=== PATIENT | female | born 1945 | race Two or more races ===

== ENCOUNTER 2023-12-11 16:31 | Emergency (ER) | payer OTHER ==
[~2023-12-11] VITALS: Ht 165.1 cm; Wt 60.0 kg
[2023-12-11 16:58] VITALS: BP 160/80; PULSE 83; RESP 15; O2SAT 98
== END 2023-12-11 18:26 | disposition left against medical advice (07) ==
LOC: ER 16:31
DX: Z48.00 Encounter for change or removal of nonsurgical wound dressing (principal); Z53.21 Procedure and treatment not carried out due to patient leaving prior to being seen by health care provider

== ENCOUNTER 2023-12-13 09:22 | Emergency (ER) | payer OTHER ==
[~2023-12-13] VITALS: Ht 165.1 cm; Wt 64.6 kg
[2023-12-13 09:44] VITALS: BP 137/56; RESP 18; O2SAT 97
[2023-12-13 09:50] VITALS: PULSE 79
[2023-12-13 11:16] LABS: Alanine Aminotransferase 27 U/L (7-40); Albumin 3.8 g/dL (3.2-4.8); Alkaline Phosphatase 99 U/L (46-116); Anion Gap 10 (5-15); Aspartate Aminotransferase 34 U/L (13-40); BUN/Creatinine Ratio 8.4 (10.0-20.0); Blood Alcohol < 3.0 mg/dL (<10); Blood Urea Nitrogen 44 mg/dL (9-23); Carbon Dioxide 30 mmol/L (20-30); Chloride 95 mmol/L (98-107); Glucose 105 mg/dL (74-106); Potassium 4.6 mmol/L (3.5-5.1); Sodium 135 mmol/L (136-145)
[2023-12-13 11:17] LABS: Bilirubin, Total < 0.2 mg/dL (0.2-1.0); Total Protein 6.2 g/dL (5.7-8.2)
[2023-12-13] MEDS ORDERED: ACET500T58 PO (13:00)
[2023-12-13] MEDS ORDERED: CLIN1CAP70 PO (13:00)
[2023-12-13] MEDS: BACITRACIN TOP OINT 1 UD PKG TOP ONE (13:26)
== END 2023-12-13 13:53 | disposition home or self-care (01) ==
LOC: ER 09:22
DX: S61.411A Laceration without foreign body of right hand, initial encounter (principal); Z88.0 Allergy status to penicillin; X58.XXXA Exposure to other specified factors, initial encounter; Y93.89 Activity, other specified; Y92.89 Other specified places as the place of occurrence of the external cause; Y99.8 Other external cause status
CPT/HCPCS: 36415; 70450; 71045; 73090; 73130; 80053; 80320; 83605; 83880; 84484; 85379; 87040; 93005; 93970

== ENCOUNTER 2023-12-31 16:03 | Inpatient (IN) | payer OTHER ==
[~2023-12-31] VITALS: Ht 167.6 cm; Wt 66.8 kg
[~2023-12-31 16:03] MED LIST: ACET500T58 PO; CLIN1CAP70 PO
[2023-12-31 16:26] VITALS: PULSE 69; RESP 16; O2SAT 100
[2023-12-31] MEDS: methylPREDNISolone SOD SUCC 125 MG/2 ML VL IV ONE (16:38)
[2023-12-31 16:55] LABS: Basophils # (auto) 0.1 10 ^3/uL (0-0.2); Basophils % (auto) 0.6 % (0.0-2.0); Eosinophils # (auto) 0.1 10 ^3/uL (0-0.8); Eosinophils % (auto) 0.8 % (0.0-7.0); Hematocrit 28.5 % (36.0-46.0); Hemoglobin 9.2 g/dL (12.2-16.2); Lymphocytes # (auto) 2.5 10 ^3/uL (0.4-5.4); Lymphocytes % (auto) 25.5 % (10.0-50.0); Mean Corpuscular Hemoglobin 30.9 pg (28.0-32.0); Mean Corpuscular Hgb Conc. 32.4 g/dL (32.0-36.0); Mean Corpuscular Volume 95.2 fL (80.0-100.0); Monocytes % (auto) 9.7 % (0.0-12.0); Neutrophils # (auto) 6.3 10 ^3/uL (1.6-8.6); Neutrophils % (auto) 63.4 % (37.0-80.0); Red Blood Cells 2.99 10^6/uL (4.0-5.20); Red Cell Distribution Width 18.2 % (11.8-14.3); White Blood Cell 9.9 10^3/uL (4.4-10.8)
[2023-12-31 18:24] LABS: Rapid Influenza A Negative (Negative); Rapid Influenza B Negative (Negative)
[2023-12-31 18:25] LABS: COVID19 ANTIGEN SOFIA FIA NEGATIVE (NEGATIVE)
[2023-12-31] MEDS: FUROSEMIDE 40 MG/4 ML VIAL IV ONE (19:45)
[2023-12-31 20:16] VITALS: PULSE 73; RESP 12; O2SAT 100
[2023-12-31] MEDS: APIXABAN 5 MG TAB PO SCH (21:52)
[2023-12-31] MEDS: levETIRAcetam 500 MG TAB PO SCH (21:52)
[2023-12-31] MEDS: CARVEDILOL 12.5 MG TAB PO SCH (21:53)
[2023-12-31 22:14] LABS: Chloride 95 mmol/L (98-107); Potassium 4.4 mmol/L (3.5-5.1); Sodium 135 mmol/L (136-145)
[2023-12-31 22:15] LABS: Anion Gap 9 (5-15); Carbon Dioxide 31 mmol/L (20-30)
[2023-12-31 22:20] LABS: BUN/Creatinine Ratio 5.2 (10.0-20.0); Blood Urea Nitrogen 26 mg/dL (9-23); Glucose 102 mg/dL (74-106)
[2023-12-31 23:30] VITALS: BP 112/80; PULSE 73; RESP 17; TEMP 98
[2023-12-31 23:52] VITALS: BP 112/80; PULSE 73; RESP 17; TEMP 98; O2SAT 99
[2024-01-01] VITALS (13 sets, daily range): BP systolic 112–153; BP diastolic 53–81; PULSE 66–76; RESP 16–18; TEMP 97.9–98.6; O2SAT 98–100
[2024-01-01 07:01] LABS: Basophils # (auto) 0 10 ^3/uL (0-0.2); Basophils % (auto) 0.1 % (0.0-2.0); Eosinophils # (auto) 0 10 ^3/uL (0-0.8); Eosinophils % (auto) 0.1 % (0.0-7.0); Hematocrit 30.1 % (36.0-46.0); Hemoglobin 9.8 g/dL (12.2-16.2); Lymphocytes # (auto) 1.8 10 ^3/uL (0.4-5.4); Mean Corpuscular Hemoglobin 31.7 pg (28.0-32.0); Mean Corpuscular Hgb Conc. 32.7 g/dL (32.0-36.0); Mean Corpuscular Volume 96.8 fL (80.0-100.0); Monocytes # (auto) 0.4 10 ^3/uL (0-1.3); Monocytes % (auto) 4.9 % (0.0-12.0); Neutrophils # (auto) 5.2 10 ^3/uL (1.6-8.6); Neutrophils % (auto) 70.9 % (37.0-80.0); Nucleated Red Blood Cells % 0.1 %; Red Blood Cells 3.11 10^6/uL (4.0-5.20); Red Cell Distribution Width 18.1 % (11.8-14.3); White Blood Cell 7.4 10^3/uL (4.4-10.8)
[2024-01-01 07:18] LABS: Alanine Aminotransferase 26 U/L (7-40); Albumin 4.2 g/dL (3.2-4.8); Alkaline Phosphatase 107 U/L (46-116); Anion Gap 9 (5-15); Aspartate Aminotransferase 18 U/L (13-40); BUN/Creatinine Ratio 4.4 (10.0-20.0); Blood Urea Nitrogen 27 mg/dL (9-23); Calcium 10.3 mg/dL (8.7-10.4); Carbon Dioxide 28 mmol/L (20-30); Chloride 95 mmol/L (98-107); Glucose 102 mg/dL (74-106); Potassium 4.4 mmol/L (3.5-5.1); Sodium 132 mmol/L (136-145)
[2024-01-01 07:19] LABS: Bilirubin, Total < 0.2 mg/dL (0.2-1.0)
[2024-01-01] MEDS: SEVELAMER 800 MG TAB PO SCH (08:06)
[2024-01-01] MEDS: FUROSEMIDE 40 MG TAB PO SCH (09:32)
[2024-01-01] MEDS: CLOPIDOGREL BISULFATE 75 MG TAB PO SCH (09:32)
[2024-01-01] MEDS: guaiFENesin-DM 100/10mg/5ml SYR PO PRN (13:29)
[2024-01-01] MEDS: ONDANSETRON HCL 4 MG/2 ML VIAL IV PRN (15:42)
[2024-01-01] MEDS: PANTOPRAZOLE 40 MG TAB PO SCH (17:58)
[2024-01-01] MEDS: BUMETANIDE 2.5mg/10ml (0.25 mg/ml) INJ IV SCH (17:59)
[2024-01-01] MEDS: ALBUTEROL SULF 2.5 MG/0.5ML(0.5%) NEB SOLN NEB PRN (18:39)
[2024-01-01] MEDS: hydrALAZINE HCL 20 MG/ML VL IV ONE (22:46)
[2024-01-02] VITALS (15 sets, daily range): BP systolic 139–184; BP diastolic 45–72; PULSE 60–71; RESP 16–18; TEMP 97.6–98.6; O2SAT 94–100
[2024-01-02] MEDS ORDERED: SODIUM CHL 0.9% 1000 ML BAG XX ONE (07:00)
[2024-01-02] MEDS ORDERED: hydrALAZINE HCL 20 MG/ML VL IV PRN (15:15)
[2024-01-02] MEDS ORDERED: CARV12.544 PO (15:32)
[2024-01-02] MEDS ORDERED: CILO100T3 PO (15:32)
[2024-01-02] MEDS ORDERED: SEVE800T8 PO (15:32)
[2024-01-02] MEDS ORDERED: FAMO-12 PO (15:32)
[2024-01-02] MEDS ORDERED: AMLO1TAB22 PO (15:32)
[2024-01-02] MEDS ORDERED: LISI20TA56 PO (15:32)
[2024-01-02] MEDS ORDERED: HYDR25TA88 PO (15:32)
[2024-01-02] MEDS ORDERED: PREG50CA PO (15:32)
[2024-01-02] MEDS ORDERED: ISOS1TAB29 PO (15:32)
[2024-01-02] MEDS ORDERED: ROSU10TA64 PO (15:32)
[2024-01-02] MEDS: methylPREDNISolone SOD SUCC 125 MG/2 ML VL IV ONE (16:21)
[2024-01-02] MEDS: ALBUTEROL SULF 2.5 MG/0.5ML(0.5%) NEB SOLN NEB SCH (19:11)
[2024-01-02] MEDS ORDERED: PATIENTS OWN MEDICATION (Sevelamer Carbonate (Renvela) 2 TAB) PO SCH (22:00)
[2024-01-02] MEDS: EPOETIN ALFA-EPBX 4,000 UNIT/ML VIAL SC ONE (22:20)
[2024-01-02] MEDS: PREGABALIN 25 MG CAP PO SCH (22:21)
[2024-01-02] MEDS: methylPREDNISolone SOD SUCC 125 MG/2 ML VL IV SCH (22:21)
[2024-01-02] MEDS: hydrALAZINE HCL 25 MG TAB PO SCH (22:22)
[2024-01-02] MEDS: CARVEDILOL 12.5 MG TAB PO SCH (22:22)
[2024-01-02] MEDS: CILOSTAZOL 100 MG TAB PO SCH (22:23)
[2024-01-02] MEDS: LISINOPRIL 20 MG TAB PO SCH (22:23)
[2024-01-02] MEDS: FAMOTIDINE 20 MG TAB PO SCH (22:23)
[2024-01-03] VITALS (21 sets, daily range): BP systolic 103–141; BP diastolic 39–63; PULSE 67–78; RESP 16–20; TEMP 97.5–98.8; O2SAT 94–100
[2024-01-03] MEDS: ALBUTEROL SULF 2.5 MG/0.5ML(0.5%) NEB SOLN NEB SCH (02:04)
[2024-01-03] MEDS ORDERED: guaiFENesin-DM 100/10mg/5ml SYR PO PRN (10:15)
[2024-01-03] MEDS: ISOSORBIDE MONONITRATE ER 60 MG TAB PO SCH (10:20)
[2024-01-03] MEDS: ASPirin 81 mg TAB PO SCH (10:22)
[2024-01-03] MEDS: amLODIPine BESYLATE 5 MG TAB PO SCH (10:22)
[2024-01-03 14:03] LABS: Basophils # (auto) 0 10 ^3/uL (0-0.2); Basophils % (auto) 0.2 % (0.0-2.0); Eosinophils # (auto) 0 10 ^3/uL (0-0.8); Hematocrit 33.3 % (36.0-46.0); Hemoglobin 10.7 g/dL (12.2-16.2); Lymphocytes # (auto) 1.6 10 ^3/uL (0.4-5.4); Lymphocytes % (auto) 16.4 % (10.0-50.0); Mean Corpuscular Hemoglobin 31.4 pg (28.0-32.0); Mean Corpuscular Hgb Conc. 32.1 g/dL (32.0-36.0); Mean Corpuscular Volume 97.9 fL (80.0-100.0); Monocytes # (auto) 0.3 10 ^3/uL (0-1.3); Monocytes % (auto) 3.4 % (0.0-12.0); Neutrophils # (auto) 7.9 10 ^3/uL (1.6-8.6); Red Cell Distribution Width 18.5 % (11.8-14.3); White Blood Cell 9.9 10^3/uL (4.4-10.8)
[2024-01-03 14:21] LABS: Alanine Aminotransferase 28 U/L (7-40); Alkaline Phosphatase 106 U/L (46-116); Anion Gap 11 (5-15); Aspartate Aminotransferase 18 U/L (13-40); BUN/Creatinine Ratio 5.3 (10.0-20.0); Blood Urea Nitrogen 36 mg/dL (9-23); Calcium 9.9 mg/dL (8.7-10.4); Carbon Dioxide 26 mmol/L (20-30); Chloride 97 mmol/L (98-107); Glucose 97 mg/dL (74-106); Magnesium 2.5 mg/dL (1.6-2.6); Potassium 4.3 mmol/L (3.5-5.1); Sodium 134 mmol/L (136-145)
[2024-01-03 14:22] LABS: Albumin 4.1 g/dL (3.2-4.8)
[2024-01-03 14:23] LABS: Bilirubin, Total < 0.2 mg/dL (0.2-1.0); Total Protein 6.8 g/dL (5.7-8.2)
[2024-01-04] VITALS (12 sets, daily range): BP systolic 94–124; BP diastolic 48–60; PULSE 62–77; RESP 14–18; TEMP 97.4–98.1; O2SAT 95–99
[2024-01-04] MEDS: ACETAMINOPHEN 325 MG TAB PO PRN (09:06)
[2024-01-04 09:47] LABS: Hepatitis B Surface Antibody Negative (Negative)
[2024-01-04 09:59] LABS: Hepatitis B Surface Antigen Negative (Negative)
[2024-01-04] MEDS ORDERED: AZITTAB PO (12:52)
[2024-01-04] MEDS ORDERED: METH4PAK PO (12:52)
[2024-01-04] MEDS ORDERED: SODIUM CHL 0.9% 1000 ML BAG XX ONE (15:30)
== END 2024-01-04 20:00 | disposition home or self-care (01) | DRG 189 ==
LOC: EDBD 16:03 → ER 16:05 → OVERFLOW 21:37 → WEST WING 23:22
PROVIDERS: ADMIT Nurse Practitioner; ATTEND Internal Medicine Geriatric Medicine
PROC: 5A1D70Z Performance of Urinary Filtration, Intermittent, Less than 6 Hours Per Day (ICD-10-PCS; principal; 2024-01-02)
PROC: 5A1D70Z Performance of Urinary Filtration, Intermittent, Less than 6 Hours Per Day (ICD-10-PCS; 2024-01-04)
DX: J96.21 Acute and chronic respiratory failure with hypoxia (principal); N18.6 End stage renal disease; J44.1 Chronic obstructive pulmonary disease with (acute) exacerbation; I13.2 Hypertensive heart and chronic kidney disease with heart failure and with stage 5 chronic kidney disease, or end stage renal disease; I50.32 Chronic diastolic (congestive) heart failure; G40.909 Epilepsy, unspecified, not intractable, without status epilepticus; D63.1 Anemia in chronic kidney disease; Z20.822 Contact with and (suspected) exposure to COVID-19; E78.5 Hyperlipidemia, unspecified; K59.00 Constipation, unspecified; Z82.3 Family history of stroke; Z82.49 Family history of ischemic heart disease and other diseases of the circulatory system; Z83.3 Family history of diabetes mellitus; Z86.73 Personal history of transient ischemic attack (TIA), and cerebral infarction without residual deficits; Z87.891 Personal history of nicotine dependence; Z99.2 Dependence on renal dialysis; Z99.81 Dependence on supplemental oxygen; Z79.01 Long term (current) use of anticoagulants; Z88.0 Allergy status to penicillin; Z90.710 Acquired absence of both cervix and uterus
CPT/HCPCS: 36415; 71045; 80048; 80053; 83605; 83735; 83880; 84484; 85025; 86706; 87040; 87081; 87340; 87426; 87804; 90935; 93005; 93306; 94640; 96374; 99291; G0378; J1642; J2405

== ENCOUNTER 2024-01-09 23:57 | Inpatient (IN) | payer OTHER ==
[~2024-01-09] VITALS: Ht 165.1 cm; Wt 62.1 kg
[~2024-01-09 23:57] MED LIST changes: -ACET500T58 PO; +AMLO1TAB22 PO; +AZITTAB PO; +CARV12.544 PO; +CILO100T3 PO; -CLIN1CAP70 PO; +FAMO-12 PO; +HYDR25TA88 PO; +ISOS1TAB29 PO; +LISI20TA56 PO; +METH4PAK PO; +PREG50CA PO; +ROSU10TA64 PO; +SEVE800T8 PO
[2024-01-10] VITALS (8 sets, daily range): BP systolic 151–153; BP diastolic 57–67; PULSE 69–79; RESP 18–20; TEMP 97.8; O2SAT 95–100
[2024-01-10] MEDS: FUROSEMIDE 40 MG/4 ML VIAL ONE (02:02)
[2024-01-10] MEDS: methylPREDNISolone SOD SUCC 125 MG/2 ML VL ONE (02:02)
[2024-01-10] MEDS: IPRATROPIUM BROM 0.5 MG/2.5ML INH SOL NEB ONE (02:14)
[2024-01-10] MEDS: FUROSEMIDE 40 MG/4 ML VIAL IV ONE (02:15)
[2024-01-10] MEDS: methylPREDNISolone SOD SUCC 125 MG/2 ML VL IV ONE (02:15)
[2024-01-10] MEDS: NITROGLYCERIN 0.4MG/HR TOPICAL PATCH TD ONE (02:30)
[2024-01-10] MEDS: ALBUTEROL SULF 2.5 MG/0.5ML(0.5%) NEB SOLN NEB ONE (02:30)
[2024-01-10] MEDS: ONDANSETRON HCL 4 MG/2 ML VIAL IV ONE (02:30)
[2024-01-10] MEDS: FUROSEMIDE 20 MG/2 ML VIAL IV ONE (02:30)
[2024-01-10] MEDS: ASPirin 81 mg TAB PO ONE (02:30)
[2024-01-10] MEDS: ALBUTEROL SULF 2.5 MG/0.5ML(0.5%) NEB SOLN HHN ONE (02:30)
[2024-01-10] MEDS: IPRATROPIUM BROM 0.5 MG/2.5ML INH SOL HHN ONE (02:31)
[2024-01-10 03:01] LABS: Base Excess 11.5 mmol/L (-2.0-2.0)
[2024-01-10 03:34] LABS: Anion Gap 10 (5-15); BUN/Creatinine Ratio 6.3 (10.0-20.0); Blood Urea Nitrogen 22 mg/dL (9-23); Calcium 9.1 mg/dL (8.7-10.4); Carbon Dioxide 31 mmol/L (20-30); Chloride 97 mmol/L (98-107); Glucose 90 mg/dL (74-106); Potassium 3.9 mmol/L (3.5-5.1); Sodium 138 mmol/L (136-145)
[2024-01-10 03:36] LABS: Basophils # (auto) 0 10 ^3/uL (0-0.2); Basophils % (auto) 0.3 % (0.0-2.0); Eosinophils # (auto) 0 10 ^3/uL (0-0.8); Eosinophils % (auto) 0.4 % (0.0-7.0); Hematocrit 29.5 % (36.0-46.0); Hemoglobin 9.5 g/dL (12.2-16.2); Lymphocytes # (auto) 2.2 10 ^3/uL (0.4-5.4); Lymphocytes % (auto) 26.2 % (10.0-50.0); Mean Corpuscular Hemoglobin 30.6 pg (28.0-32.0); Mean Corpuscular Hgb Conc. 32.2 g/dL (32.0-36.0); Mean Corpuscular Volume 94.9 fL (80.0-100.0); Monocytes % (auto) 11.9 % (0.0-12.0); Neutrophils # (auto) 5.2 10 ^3/uL (1.6-8.6); Neutrophils % (auto) 61.2 % (37.0-80.0); Nucleated Red Blood Cells % 0.1 %; Red Blood Cells 3.11 10^6/uL (4.0-5.20); Red Cell Distribution Width 17.7 % (11.8-14.3); White Blood Cell 8.5 10^3/uL (4.4-10.8)
[2024-01-10 03:38] LABS: INR 0.97 (0.9-1.15); Partial Thromboplastin Time 22.2 SEC (24.5-34.5); Prothrombin Time 10.3 sec (9.3-11.8)
[2024-01-10] MEDS ORDERED: ALBUTEROL SULF 2.5 MG/0.5ML(0.5%) NEB SOLN NEB PRN (05:30)
[2024-01-10] MEDS ORDERED: IPRATROPIUM BROM 0.5 MG/2.5ML INH SOL NEB PRN (05:30)
[2024-01-10] MEDS ORDERED: ACETAMINOPHEN 325 MG TAB PO PRN (05:30)
[2024-01-10] MEDS ORDERED: NITROGLYCERIN 0.4 MG SL TAB SL PRN (05:30)
[2024-01-10] MEDS ORDERED: MORPHINE SULFATE INJ 2 MG/ml SYRG IV PRN (05:30)
[2024-01-10] MEDS: cloNIDine HCL 0.1 MG TAB PO SCH (06:00)
[2024-01-10] MEDS: BUMETANIDE 2.5mg/10ml (0.25 mg/ml) INJ IV SCH (06:00)
[2024-01-10] MEDS: ONDANSETRON HCL 4 MG/2 ML VIAL IV PRN (06:47)
[2024-01-10] MEDS: MORPHINE SULFATE 4 MG/ML SYR/VIAL IV PRN (06:47)
[2024-01-10] MEDS: SEVELAMER 800 MG TAB PO SCH (08:27)
[2024-01-10] MEDS: CARVEDILOL 3.125 MG TAB PO SCH (10:06)
[2024-01-10] MEDS: levETIRAcetam 500 MG TAB PO SCH (10:08)
[2024-01-10] MEDS: amLODIPine BESYLATE 5 MG TAB PO SCH (10:09)
[2024-01-10] MEDS: CLOPIDOGREL BISULFATE 75 MG TAB PO SCH (10:10)
[2024-01-10] MEDS: LISINOPRIL 20 MG TAB PO SCH (10:10)
[2024-01-10] MEDS: APIXABAN 5 MG TAB PO SCH (10:11)
[2024-01-10] MEDS: AZITHROMYCIN 500MG/ 250ML 250 ML IV SCH (10:12)
[2024-01-10 11:12] LABS: % Iron Saturation 20.9 % (15-50)
[2024-01-10 11:17] LABS: Alanine Aminotransferase 42 U/L (7-40); Alkaline Phosphatase 97 U/L (46-116); Anion Gap 5 (5-15); Aspartate Aminotransferase 26 U/L (13-40); BUN/Creatinine Ratio 6.7 (10.0-20.0); Bilirubin, Total < 0.2 mg/dL (0.2-1.0); Blood Urea Nitrogen 28 mg/dL (9-23); CRP High Sensitivity 0.25 mg/dL (<1.0); Calcium 9.4 mg/dL (8.5-10.1); Carbon Dioxide 33 mmol/L (20-30); Chloride 96 mmol/L (98-107); Cholesterol 139 mg/dL (< 200); Glucose 185 mg/dL (74-106); HDL Cholesterol 54 mg/dL (40-59); LDL Cholesterol 55 mg/dL (< 100); Magnesium 2.1 mg/dL (1.6-2.6); Potassium 4.7 mmol/L (3.5-5.1); Sodium 134 mmol/L (136-145); Total Protein 6.7 g/dL (5.7-8.2); Triglycerides 119 mg/dL (< 150)
[2024-01-10] MEDS: methylPREDNISolone SOD SUCC 40 MG/ML VL IV ONE (12:02)
[2024-01-10] MEDS: IPRATROPIUM BROM 0.5 MG/2.5ML INH SOL NEB SCH (12:03)
[2024-01-10] MEDS: ALBUTEROL SULF 2.5 MG/0.5ML(0.5%) NEB SOLN NEB SCH (12:03)
[2024-01-10 15:10] LABS: Basophils # (auto) 0 10 ^3/uL (0-0.2); Basophils % (auto) 0.2 % (0.0-2.0); Eosinophils # (auto) 0 10 ^3/uL (0-0.8); Hematocrit 33.9 % (36.0-46.0); Hemoglobin 10.7 g/dL (12.2-16.2); Lymphocytes % (auto) 23.5 % (10.0-50.0); Mean Corpuscular Hemoglobin 30.5 pg (28.0-32.0); Mean Corpuscular Hgb Conc. 31.6 g/dL (32.0-36.0); Mean Corpuscular Volume 96.4 fL (80.0-100.0); Monocytes # (auto) 0.2 10 ^3/uL (0-1.3); Monocytes % (auto) 2.9 % (0.0-12.0); Neutrophils # (auto) 6.4 10 ^3/uL (1.6-8.6); Neutrophils % (auto) 73.4 % (37.0-80.0); Nucleated Red Blood Cells % 0.1 %; Red Blood Cells 3.52 10^6/uL (4.0-5.20); Red Cell Distribution Width 17.6 % (11.8-14.3); White Blood Cell 8.7 10^3/uL (4.4-10.8)
[2024-01-10] MEDS ORDERED: CLOP75TA70 PO (21:45)
[2024-01-10] MEDS ORDERED: LEVE500T40 PO (21:45)
[2024-01-10] MEDS ORDERED: CARV12.544 PO (21:45)
[2024-01-10] MEDS ORDERED: NITR0.4S29 SL (21:45)
[2024-01-10] MEDS ORDERED: ACET-1881 PO (21:45)
[2024-01-10] MEDS ORDERED: OMEP20TA PO (21:45)
[2024-01-10] MEDS ORDERED: MULTTAB OR (21:45)
[2024-01-10] MEDS ORDERED: HYDR-4902 PO (21:45)
[2024-01-10] MEDS ORDERED: TOPI100T68 PO (21:45)
[2024-01-10] MEDS ORDERED: OLME20TA53 PO (21:45)
[2024-01-10] MEDS: ATORVASTATIN 20 MG TAB PO SCH (21:57)
[2024-01-10] MEDS: methylPREDNISolone SOD SUCC 40 MG/ML VL IV SCH (22:10)
[2024-01-11] VITALS (15 sets, daily range): BP systolic 127–164; BP diastolic 63–72; PULSE 61–75; RESP 14–21; TEMP 97.5–98.5; O2SAT 97–100
[2024-01-11] MEDS: ACETAMINOPHEN 325 MG TAB PO PRN (06:37)
[2024-01-11] MEDS: hydrALAZINE HCL 20 MG/ML VL IV PRN (12:36)
[2024-01-11 14:52] LABS: Urine Bacteria None Seen /hpf (None Seen)
[2024-01-11 15:18] LABS: Urine Blood Negative /uL (Negative); Urine Clarity Clear (Clear); Urine Color Light-Yellow (Yellow); Urine Protein, UAD 3+ (Negative); Urine Specific Gravity 1.009 (1.001-1.035); Urine Urobilinogen Normal (Negative); Urine WBC 44 /hpf (0 - 5)
[2024-01-11] MEDS ORDERED: OLME40TA76 PO (15:18)
[2024-01-11] MEDS: SODIUM CHL 0.9% 1000 ML BAG XX ONE (17:49)
[2024-01-11 18:15] LABS: Basophils # (auto) 0 10 ^3/uL (0-0.2); Basophils % (auto) 0.1 % (0.0-2.0); Eosinophils # (auto) 0 10 ^3/uL (0-0.8); Hematocrit 31.6 % (36.0-46.0); Hemoglobin 10.1 g/dL (12.2-16.2); Lymphocytes # (auto) 2.3 10 ^3/uL (0.4-5.4); Lymphocytes % (auto) 25.6 % (10.0-50.0); Mean Corpuscular Hemoglobin 30.4 pg (28.0-32.0); Mean Corpuscular Hgb Conc. 31.8 g/dL (32.0-36.0); Mean Corpuscular Volume 95.7 fL (80.0-100.0); Monocytes # (auto) 0.4 10 ^3/uL (0-1.3); Neutrophils # (auto) 6.3 10 ^3/uL (1.6-8.6); Neutrophils % (auto) 70.3 % (37.0-80.0); Red Blood Cells 3.31 10^6/uL (4.0-5.20); Red Cell Distribution Width 17.8 % (11.8-14.3)
[2024-01-11 18:36] LABS: Alanine Aminotransferase 26 U/L (7-40); Albumin 3.6 g/dL (3.2-4.8); Alkaline Phosphatase 82 U/L (46-116); Anion Gap 9 (5-15); Aspartate Aminotransferase < 8 U/L (13-40); BUN/Creatinine Ratio 10.1 (10.0-20.0); Calcium 8.5 mg/dL (8.5-10.1); Carbon Dioxide 30 mmol/L (20-30); Chloride 91 mmol/L (98-107); Glucose 187 mg/dL (74-106); Magnesium 2.2 mg/dL (1.6-2.6); Potassium 4.9 mmol/L (3.5-5.1); Sodium 130 mmol/L (136-145)
[2024-01-11 18:37] LABS: Bilirubin, Total < 0.2 mg/dL (0.2-1.0)
[2024-01-11 18:39] LABS: Blood Urea Nitrogen 65 mg/dL (9-23)
[2024-01-11] MEDS: EPOETIN ALFA-EPBX 10,000 UNIT/1ML VIAL SC ONE (22:18)
[2024-01-11] MEDS: CIPROFLOXACIN HYDROCHLORIDE 250 MG TAB PO SCH (22:23)
[2024-01-12] VITALS (7 sets, daily range): BP systolic 142–151; BP diastolic 51–70; PULSE 56–69; RESP 16–20; TEMP 98–98.5; O2SAT 95–100
[2024-01-12 05:10] LABS: COVID19 ANTIGEN SOFIA FIA NEGATIVE (NEGATIVE)
[2024-01-12 06:05] LABS: Basophils # (auto) 0 10 ^3/uL (0-0.2); Basophils % (auto) 0.1 % (0.0-2.0); Eosinophils # (auto) 0 10 ^3/uL (0-0.8); Eosinophils % (auto) 0.2 % (0.0-7.0); Lymphocytes # (auto) 3.6 10 ^3/uL (0.4-5.4); Lymphocytes % (auto) 38.2 % (10.0-50.0); Mean Corpuscular Hemoglobin 31.2 pg (28.0-32.0); Mean Corpuscular Hgb Conc. 32.4 g/dL (32.0-36.0); Mean Corpuscular Volume 96.3 fL (80.0-100.0); Monocytes % (auto) 10.9 % (0.0-12.0); Neutrophils # (auto) 4.7 10 ^3/uL (1.6-8.6); Neutrophils % (auto) 50.6 % (37.0-80.0); Nucleated Red Blood Cells % 0.1 %; Red Blood Cells 3.53 10^6/uL (4.0-5.20); White Blood Cell 9.4 10^3/uL (4.4-10.8)
[2024-01-12 06:25] LABS: Chloride 99 mmol/L (98-107); Potassium 4.6 mmol/L (3.5-5.1); Sodium 137 mmol/L (136-145)
[2024-01-12 06:26] LABS: Anion Gap 5 (5-15); Calcium 9.2 mg/dL (8.5-10.1); Carbon Dioxide 33 mmol/L (20-30)
[2024-01-12 06:31] LABS: BUN/Creatinine Ratio 8.5 (10.0-20.0); Glucose 76 mg/dL (74-106)
[2024-01-12 06:41] LABS: Blood Urea Nitrogen 39 mg/dL (9-23)
[2024-01-12] MEDS ORDERED: PRED20TA2 PO (06:44)
[2024-01-12] MEDS ORDERED: BACDST PO (06:44)
[2024-01-12] MEDS ORDERED: AZIT-43 PO (06:44)
[2024-01-12] MEDS: AZITHROMYCIN 250 MG TAB PO SCH (08:38)
[2024-01-12] MEDS: methylPREDNISolone SOD SUCC 40 MG/ML VL IV SCH (08:40)
[2024-01-12] MEDS ORDERED: UMEC1AER IN (10:36)
== END 2024-01-12 09:35 | disposition home or self-care (01) | DRG 291 ==
LOC: ER 23:57 → TELE 01-10 05:36 → TELE-WESTW 01-10 05:36
PROVIDERS: ADMIT Internal Medicine Pulmonary Disease; ATTEND Internal Medicine Pulmonary Disease
PROC: 5A1D80Z Performance of Urinary Filtration, Prolonged Intermittent, 6-18 hours Per Day (ICD-10-PCS; principal; 2024-01-11)
DX: I13.2 Hypertensive heart and chronic kidney disease with heart failure and with stage 5 chronic kidney disease, or end stage renal disease (principal); I50.33 Acute on chronic diastolic (congestive) heart failure; J96.21 Acute and chronic respiratory failure with hypoxia; N18.6 End stage renal disease; J44.1 Chronic obstructive pulmonary disease with (acute) exacerbation; N39.0 Urinary tract infection, site not specified; Z20.822 Contact with and (suspected) exposure to COVID-19; D63.8 Anemia in other chronic diseases classified elsewhere; G40.909 Epilepsy, unspecified, not intractable, without status epilepticus; Z99.2 Dependence on renal dialysis; Z99.81 Dependence on supplemental oxygen; Z88.0 Allergy status to penicillin; Z79.899 Other long term (current) drug therapy
CPT/HCPCS: 36415; 36600; 71045; 76856; 80048; 80053; 80061; 81001; 82728; 82805; 83540; 83550; 83605; 83735; 83880; 84443; 84484; 85025; 85610; 85730; 86141; 87040; 87081; 87086; 87426; 90935; 93005; 94640; G0378; J2405